=== PATIENT | male | born 1960 ===

== ENCOUNTER 2018-01-20 10:59 | Outpatient (CLI) | payer OTHER ==
[~2018-01-20] VITALS: Ht 172.7 cm; Wt 104.3 kg
== END 2018-01-20 11:15 | disposition home or self-care (01) ==
LOC: OFIC 805 10:59
DX: H61.32 Acquired stenosis of external ear canal secondary to inflammation and infection (principal); H90.0 Conductive hearing loss, bilateral; H61.21 Impacted cerumen, right ear